=== PATIENT | female | born 1985 | race African-American/Black ===

== ENCOUNTER 2021-02-21 04:25 | Emergency (ER) | payer MEDICAID ==
[~2021-02-21] VITALS: Ht 180.3 cm; Wt 163.0 kg
[2021-02-21 04:32] VITALS: BP 140/87
[2021-02-21] MEDS ORDERED: ONDANSETRON HCL 4MG/2ML INJ IV STA (05:37)
[2021-02-21] MEDS ORDERED: KETOROLAC 30MG/ML VIAL IV STA (05:37)
[2021-02-21] MEDS ORDERED: ACETAMINOPHEN WITH CODEINE 300/30MG TABLET PO ONE (05:45)
[2021-02-21 06:31] LABS: BASOPHILS % 0.5 % (0.0-2.0); EOSINOPHILS % 1.3 % (0.0-5.0); HEMATOCRIT. 36.5 % (36.0-48.0); HEMOGLOBIN. 11.5 g/dL (12.0-16.0); LYMPHOCYTES % 31.3 % (20.0-50.0); MEAN CORPUSCULAR HEMOGLOBIN 24.1 pg (28.0-32.0); MEAN CORPUSCULAR VOLUME 76.4 fL (81.0-99.0); MEAN PLATELET VOLUME 7.5 fl (7.4-10.4); MONOCYTES % 6.4 % (2.0-8.0); NEUTROPHILS % 60.5 % (40.0-76.0); PLATELET 413 x1000/uL (130-400); RED BLOOD CELL COUNT 4.78 mill/uL (4.2-5.4); RED CELL DISTRIBUTION WIDTH 18.6 % (11.6-14.6)
[2021-02-21 06:32] LABS: CHLORIDE 108 mEq/L (98-107)
[2021-02-21 06:49] LABS: CLARITY URINE CLEAR (CLEAR); COLOR URINE YELLOW (YELLOW); KETONES URINE NEGATIVE (NEGATIVE); LEUKOCYTE ESTERASE URINE TRACE (NEGATIVE); NITRITE URINE NEGATIVE (NEGATIVE); OCCULT BLOOD URINE NEGATIVE (NEGATIVE); PH URINE 5.5 (4.5-8.0); PROTEIN URINE NEGATIVE (NEGATIVE); SPECIFIC GRAVITY URINE 1.028 (1.005-1.030)
[2021-02-21] MEDS ORDERED: MORPHINE SULFATE 4 MG/ML CPJ (NOT FOR IM USE) IV ONE (09:45)
[2021-02-21] MEDS ORDERED: NITR100C PO (11:08)
[2021-02-21] MEDS ORDERED: TOPUD PO (11:08)
[2021-02-23 04:07] LABS: NEISSERIA GONORRHOEAE NAA Negative (Negative)
== END 2021-02-21 11:26 | disposition home or self-care (01) ==
LOC: ER 06:11 → EDBEDREQ 11:09 → EDBEDREQTM 11:09 → ER 11:26 → CANBEDREQ 12:56
DX: N39.0 Urinary tract infection, site not specified (principal)
CPT/HCPCS: 36415; 74176; 76830; 76856; 80053; 81003; 81025; 83690; 85025; 85610; 87210; 87491; 87591; 96374; 96375; 99285; J1885; J2405; J7040; Z7610